=== PATIENT | female | born 1995 | race Two or more races ===

== ENCOUNTER 2023-12-09 16:28 | Emergency (ER) | payer MEDICAID ==
[~2023-12-09] VITALS: Ht 157.5 cm; Wt 93.2 kg
[2023-12-09 17:31] LABS: BASOPHILS % (AUTO) 0.4 % (0-1); EOSINOPHILS # (AUTO) 0.1 X10'3 (0-0.9); EOSINOPHILS % (AUTO) 1.7 % (0-6); HEMATOCRIT 38.6 % (35.0-45.0); HEMOGLOBIN 12.8 g/dl (12.0-16.0); LYMPHOCYTES # (AUTO) 1.9 X10'3 (1.1-4.8); LYMPHOCYTES % (AUTO) 20.8 % (21-51); MEAN CORPUSCULAR HEMOGLOBIN 29.4 PG (27.0-31.0); MEAN CORPUSCULAR HGB CONC 33.1 g/dL (33.0-36.5); MEAN CORPUSCULAR VOLUME 88.7 FL (78-98); MEAN PLATELET VOLUME 10.1 FL (7.4-10.4); MONOCYTES # (AUTO) 0.6 X10'3 (0-0.9); MONOCYTES % (AUTO) 7.2 % (2-12); NEUTROPHILS # (AUTO) 6.3 X10'3 (1.8-7.7); NEUTROPHILS % (AUTO) 69.9 % (42-75); PLATELET COUNT 211 X10'3 (140-440); RED BLOOD COUNT 4.35 X10'6 (4.20-5.60); RED CELL DISTRIBUTION WIDTH 13.4 % (11.5-14.5)
[2023-12-09 17:44] LABS: ALANINE AMINOTRANSFERASE 20 U/L (12-78); ALBUMIN 3.9 G/DL (3.4-5.0); ALKALINE PHOSPHATASE 184 IU/L (46-116); ANION GAP 10 (8-16); ASPARTATE AMINO TRANSFERASE 15 U/L (10-37); BILIRUBIN,TOTAL 0.3 MG/DL (0.1-1.0); BLOOD UREA NITROGEN 14 MG/DL (7-18); BUN/CREATININE RATIO 18.7 (10.0-20.0); CALCIUM 8.7 MG/DL (8.5-10.1); CHLORIDE 103 MMOL/L (99-107); CREATININE 0.75 MG/DL (0.40-0.90); GLUCOSE 96 MG/DL (70-104); LIPASE 50 U/L (16-77); POTASSIUM 3.8 MMOL/L (3.5-5.1); SODIUM 137 MMOL/L (135-145); TOTAL CARBON DIOXIDE 24.4 MMOL/L (24-32); eCRCL 90 ML/MIN; eGFR > 90 ML/MIN
[2023-12-09 18:04] LABS: BILIRUBIN,URINE NEGATIVE (Neg); CLARITY,URINE CLOUDY (Clear); COLOR,URINE YELLOW (Yellow); GLUCOSE, URINE NEGATIVE (Neg); KETONES,URINE TRACE mg/dl (Neg); LEUKOCYTE ESTERASE ,URINE NEGATIVE (Neg); NITRITES, URINE NEGATIVE (Neg); OCCULT BLOOD,URINE LARGE (Neg); PROTEIN,URINE NEGATIVE (Neg); UROBILINOGEN,URINE 0.2 E.U/dL (0.2-1.0)
[2023-12-09 18:05] LABS: URINE HCG NEGATIVE (NEG)
[2023-12-09 18:06] LABS: UA COLLECTION TYPE CLN CATCH MIDSTREAM
[2023-12-09 18:11] LABS: BACTERIA,URINE FEW /HPF (Neg); RBC,URINE TNTC /HPF (0-2); SQUAMOUS EPITHELIAL CELL,UR FEW /LPF (FEW); WBC,URINE 0-4 /HPF (0-4)
[2023-12-09 20:55] VITALS: BP 118/60; PULSE 68; RESP 15; TEMP 98.1; O2SAT 98
== END 2023-12-09 20:58 | disposition home or self-care (01) ==
LOC: ER 16:29
DX: M54.6 Pain in thoracic spine (principal); R11.0 Nausea
CPT/HCPCS: 36415; 80053; 81001; 81025; 83690; 85025; 99283

== ENCOUNTER 2024-07-27 18:50 | Emergency (ER) | payer MEDICAID ==
[~2024-07-27] VITALS: Ht 157.5 cm; Wt 99.9 kg
--- NOTE | 2024-07-27 19:05 | Physician Documentation ---
History of Present Illness ~ Chief Complaint: Dizziness Stated Complaint: "DIZZY/CAR SICK" Time Seen by MD: 20:41 Primary Medical Doctor: NONE HPI 29-year-old female with complaints of dizziness though the past few days. Patient states that it is constant dizziness. Patient states that she is well hydrated the dizziness does not worsen with standing or head movement. Patient denies ever experiencing the sensation before no changes in medications or lifestyle. Patient states she could potentially be with last menstrual cycle 07/05/2024 Medication Reconciliation Allergies: Coded Allergies: No Known Allergies (Unverified , 07/27/24) Scheduled PRN Meclizine HCl (Meclizine HCl), 1 TABLET PO TID PRN PRN for dizziness/vertigo Past Medical History Past Medical History: No Pertinent History Review of Systems Neurological: Reports: see HPI Physical Exam Vital Signs: Temperature: 98.7, Heart Rate: 82, Respiratory Rate: 16, BP: 126/81, Pulse Oximetry: 98, Weight: 99.900 Oxygen Flow Rate: 0 General Appearance: alert, WD/WN, no apparent distress Respiratory: lungs clear Chest: no accessory muscle use Cardiovascular: regular rate, rhythm Progress Results/Orders Results/Orders Orders - DIDIER ROJAS MD Chest,Single View (07/27/24 18:53) Monitor (07/27/24 18:53) Saline Lock (07/27/24 18:53) Oxygen (07/27/24 18:53) Electrocardiogram (07/27/24 18:53) Hs Troponin I W Calculations (07/27/24 21:53) Hcg Serum Ql (07/27/24 21:10) Completed Orders - DIDIER ROJAS MD Chest,Single View (07/27/24 18:53) Cbc/Diff (07/27/24 18:53) BMP (07/27/24 18:53) PBNP (07/27/24 18:53) Hs Troponin I W Calculations (07/27/24 18:53) Hs Troponin I W Calculations (07/27/24 20:53) Hcg, Ur Ql (07/27/24 19:02) Meclizine Tablets (Antivert Tablet) (07/27/24 21:10) Medications Received in ER Medications (Trade) Dose Ordered Sig/Ernesto Route PRN Reason Start Time Stop Time Status Last Admin Dose Admin (Antivert tablet) 25 mg ONCE ONCE PO 07/27/24 21:10 07/27/24 21:11 DC 07/27/24 21:36 25 MG Vital Signs 07/27/24 07/27/24 07/27/24 07/27/24 18:58 20:27 21:58 23:18 Temp 98.7 97.8 Pulse 82 80 99 Resp 16 16 16 B/P (MAP) 126/81 124/80 (95) 124/80 Pulse Ox 98 99 99 O2 Flow Rate 0 Laboratory Tests Test 07/27/24 19:09 07/27/24 21:09 07/27/24 21:52 White Blood Count 8.7 Red Blood Count 4.36 Hemoglobin 12.8 Hematocrit 38.3 Mean Corpuscular Volume 87.8 Mean Corpuscular Hemoglobin 29.3 Mean Corpuscular Hemoglobin Concent 33.3 Red Cell Distribution Width 13.2 Platelet Count 249 Mean Platelet Volume 10.3 Neutrophils (%) (Auto) 65.2 Lymphocytes (%) (Auto) 25.0 Monocytes (%) (Auto) 8.1 Eosinophils (%) (Auto) 1.2 Basophils (%) (Auto) 0.5 Neutrophils # (Auto) 5.7 Lymphocytes # (Auto) 2.2 Monocytes # (Auto) 0.7 Eosinophils # (Auto) 0.1 Basophils # (Auto) 0.0 CBC Comment Sodium Level 143 Potassium Level 3.7 Chloride Level 106 Carbon Dioxide Level 24.7 Anion Gap 12 Blood Urea Nitrogen 13 Creatinine 0.77 Estimated GFR/1.73 m2 90 BUN/Creatinine Ratio 16.9 Glucose Level 85 Calcium Level 8.9 Troponin I High Sensitivity < 4 L < 4 L Troponin I High Sens Percent Delta Troponin I Hi Sens Absolute Change Pro-B-Type Natriuretic Peptide 32 Albumin 4.0 Chemistry Comments Urine HCG, Qualitative Negative Departure Disposition: HOME / SELF CARE / HOMELESS Impression: Primary Impression: Vertigo Additional Impression Text Assumed care of patient from Eliana Yao nurse practitioner. Patient in with episodic dizziness that gets worse with turning her head. It started today. She has never had this before. Wonders if she might be . No other symptoms. Symptoms most consistent with benign positional vertigo. CBC, chemistry, troponin and UA unremarkable. test negative. Chest x-ray shows bilateral opacities per Radiology but when I reviewed the film I do not see this and patient denies any cough or shortness of breath. Lung sounds are clear. I did give her meclizine and she is feeling better. Gave instructions for Nico maneuvers and vertigo. Gave script for meclizine. Discharged in good condition with family. She is to follow up with the PCP if not improving. Discussed it [facility] symptoms may require ENT follow-up. Return here if not doing well or new or worsening symptoms. Condition: Stable Discharge Instructions: Benign Positional Vertigo, How to Perform the Nico Maneuver Additional Instructions: Follow-up with your doctor if not improving over the next week. You may ultimately need a referral to ENT if this last very long. Return to the ER if new or worsening symptoms prior to follow-up. Meclizine does not treat this but can help with the symptoms. Use caution as it may make you tired. Long-term use of meclizine can cause a problem with so this was intended for short term use over the next 1-2 weeks. If this is not improving over the next couple of days you can try Nico maneuvers at home. Follow the instructions for this. Referrals: NO PRIMARY CARE PROVIDER (PCP) Prescriptions Meclizine HCl (Meclizine HCl) 25 Mg Tablet 1 TABLET PO TID PRN PRN for dizziness/vertigo, #20 TABLET Prov: DIDIER ROJAS MD 07/27/24 Education Educated: Patient Educated regarding: diagnosis, treatment, prognosis, need for follow up Signature Scribe Signature: No scribe Attestation: No scribe ELIANA YAO NP Jul 27, 2024 19:05 DIDIER ROJAS MD Jul 27, 2024 23:03
[2024-07-27 19:28] LABS: BASOPHILS % (AUTO) 0.5 % (0-1); EOSINOPHILS # (AUTO) 0.1 X10'3 (0-0.9); EOSINOPHILS % (AUTO) 1.2 % (0-6); HEMATOCRIT 38.3 % (35.0-45.0); HEMOGLOBIN 12.8 g/dl (12.0-16.0); LYMPHOCYTES # (AUTO) 2.2 X10'3 (1.1-4.8); MEAN CORPUSCULAR HEMOGLOBIN 29.3 PG (27.0-31.0); MEAN CORPUSCULAR HGB CONC 33.3 g/dL (33.0-36.5); MEAN CORPUSCULAR VOLUME 87.8 FL (78-98); MEAN PLATELET VOLUME 10.3 FL (7.4-10.4); MONOCYTES # (AUTO) 0.7 X10'3 (0-0.9); MONOCYTES % (AUTO) 8.1 % (2-12); NEUTROPHILS # (AUTO) 5.7 X10'3 (1.8-7.7); NEUTROPHILS % (AUTO) 65.2 % (42-75); PLATELET COUNT 249 X10'3 (140-440); RED BLOOD COUNT 4.36 X10'6 (4.20-5.60); RED CELL DISTRIBUTION WIDTH 13.2 % (11.5-14.5); WHITE BLOOD COUNT 8.7 X10'3 (4.5-11.0)
--- NOTE | 2024-07-27 19:59 | RADIOLOGY REPORT ---
CHEST RADIOGRAPH Indication: CP Technique: Single frontal view of the chest was obtained Comparison: None FINDINGS: The cardiac silhouette is unremarkable. The lungs demonstrate bibasilar airspace opacities. The pulmo nary vasculature is unremarkable. There is no pleural effusion.. There is no pneumothorax. IMPRESSION: 1. Bibasilar airspace opacification.
[2024-07-27 20:06] LABS: ANION GAP 12 (8-16); BLOOD UREA NITROGEN 13 MG/DL (7-18); BUN/CREATININE RATIO 16.9 (10.0-20.0); CALCIUM 8.9 MG/DL (8.5-10.1); CHLORIDE 106 MMOL/L (99-107); CREATININE 0.77 MG/DL (0.40-0.90); GLUCOSE 85 MG/DL (70-104); POTASSIUM 3.7 MMOL/L (3.5-5.1); PRO BRAIN NATRIURETIC PEPTIDE 32 PG/ML (0-125); SODIUM 143 MMOL/L (135-145); TOTAL CARBON DIOXIDE 24.7 MMOL/L (24-32); eCRCL 87 ML/MIN; eGFR 90 ML/MIN
[2024-07-27 21:29] LABS: URINE HCG NEGATIVE (NEG)
[2024-07-27] MEDS: meclizine 12.5mg tablet PO ONE (21:36)
[2024-07-27] MEDS ORDERED: MECL-302 PO (23:01)
[2024-07-27 23:18] VITALS: BP 124/80; PULSE 99; RESP 16; TEMP 97.8; O2SAT 99
--- NOTE | 2024-07-28 06:41 | ELECTROCARDIOGRAPH REPORT ---
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
== END 2024-07-27 23:21 | disposition home or self-care (01) ==
LOC: ER 18:51
DX: R42 Dizziness and giddiness (principal)
CPT/HCPCS: 36415; 71045; 80048; 81025; 83880; 84484; 85025; 93005; 99285; J8597